=== PATIENT | female | born 1985 | race Caucasian/White ===

== ENCOUNTER 2023-09-04 06:37 | Emergency (ER) | payer OTHER ==
[~2023-09-04] VITALS: Ht 162.6 cm; Wt 61.2 kg
[~2023-09-04 06:37] MED LIST: ALBIPROI; ALBIPROI INH; ALBU.083IS IH; ALBU.083IS INH; ALBU90OI INH; AZIT250 PO; BECL80OI INH; BUDE10.22 IH; BUPR150T2 PO; CEPH500 PO; HYDACE5325 PO; HYOS.125 SL; IPRAIS NEB; MONT4 PO; MULVITMINE; PRED10 PO; PRED20 PO; PROM25 PO; SALM50IP INH; SULTRIDS PO
[2023-09-04 08:07] VITALS: BP 115/76
[2023-09-04] MEDS ORDERED: BREYNA 80-4.510.3 GM INH (09:42)
[2023-09-04] MEDS ORDERED: PRED20 PO (09:42)
[2023-09-04] MEDS ORDERED: QVAR REDIHALE10.6 G2 INH (09:42)
== END 2023-09-04 10:25 | disposition home or self-care (01) ==
LOC: ER 06:37
DX: J45.901 Unspecified asthma with (acute) exacerbation (principal); Z79.51 Long term (current) use of inhaled steroids; Z79.899 Other long term (current) drug therapy; F17.210 Nicotine dependence, cigarettes, uncomplicated
CPT/HCPCS: 93005; 93010; 94640; 94644; 94664; 99284-25; J7512

== ENCOUNTER 2024-05-07 18:23 | Emergency (ER) | payer OTHER ==
[~2024-05-07] VITALS: Ht 162.6 cm; Wt 61.2 kg
[~2024-05-07 18:23] MED LIST changes: +BREYNA 80-4.510.3 GM INH; +BUDESONIDE-FO10.2 G3; +COMBIVENT RESPIM4 G1; +LIDO700A20 TOP; +QVAR REDIHALE10.6 G2 INH; +Ventolin/Prove6.7 GM
[2024-05-07 18:28] VITALS: BP 147/92
[2024-05-07 19:11] LABS: BASOPHILS ABSOLUTE AUTO 0.03 K/mm3 (0.00-0.23); BASOPHILS PERCENT AUTO 1 % (0-2); EOSINOPHILS PERCENT AUTO 2 % (0-6); Hematocrit 38.7 % (33.0-51.0); IMMATURE GRAN ABSOLUTE AUTO 0.02 K/mm3 (0.00-0.10); IMMATURE GRAN PERCENT AUTO 0 % (0-1); LYMPHOCYTES ABSOLUTE AUTO 1.52 K/mm3 (0.84-5.20); LYMPHOCYTES PERCENT AUTO 29 % (21-46); MONOCYTES ABSOLUTE AUTO 0.37 K/mm3 (0.16-1.47); MONOCYTES PERCENT AUTO 7 % (4-13); Mean Corpuscular HGB 30.3 pg (26.0-34.0); Mean Corpuscular HGB Conc 33.6 g/dL (31.5-36.5); Mean Corpuscular Volume 90 fL (80-100); Mean Platelet Volume 9.8 fL (9.1-12.4); NEUTROPHILS PERCENT AUTO 62 % (41-73); Platelet Count 321 K/mm3 (150-400); RDW Coefficient Variation 12.7 % (11.7-14.2); RDW Standard Deviation 41.5 fL (35.1-46.3); Red Blood Cell Count 4.29 M/mm3 (3.80-5.20); White Blood Cell Count 5.34 K/mm3 (4.00-11.30)
[2024-05-07 19:13] LABS: Albumin, Blood 3.6 g/dL (3.4-5.0); Albumin/Globulin Ratio 0.9 (0.8-1.8); Bilirubin, Total 0.3 mg/dL (0.1-1.0); Bun/Creatinine Ratio 16.3 (12.0-20.0); Calcium, Blood 8.9 mg/dL (8.5-10.1); Creatinine, Blood 0.74 mg/dL (0.40-1.00); Potassium, Blood 3.5 mmol/L (3.5-5.5); Total Protein, Blood 7.6 g/dL (6.4-8.2)
== END 2024-05-07 19:44 | disposition home or self-care (01) ==
LOC: ER 18:23
PROVIDERS: Physician Assistant
DX: F11.93 Opioid use, unspecified with withdrawal (principal); Z88.1 Allergy status to other antibiotic agents; J45.909 Unspecified asthma, uncomplicated
CPT/HCPCS: 36415; 80053; 85025; 93005; 93010; 99284-25